=== PATIENT | male | born 1995 | race Hispanic/Latino ===

== ENCOUNTER 2017-08-26 03:45 | Emergency (ER) | payer SELFPAY ==
[2017-08-26 04:25] VITALS: BP 128/72; PULSE 78; RESP 18; TEMP 97.4; O2SAT 98
--- NOTE | 2017-08-26 04:27 | ED PDOC ---
HPI: Psych/Substance Abuse Time Seen by Provider: 08/26/17 03:55 Chief Complaint (Nursing): Alcohol Ingestion Chief Complaint (Provider): Alcohol Ingestion ED Caveat: Intoxicated History Per: Patient, Other ([place] [employer]) History/Exam Limitations: no limitations Onset/Duration Of Symptoms: Mins (prior to arrival) Current Symptoms Are (Timing): Still Present Additional Complaint(s): 22 year old male who presents to the emergency department via [place] police department for an evaluation of intoxication prior to arrival. Denied any drug use or bodily injury. PMD: none provided Past Medical History Reviewed: Historical Data, Nursing Documentation, Vital Signs Vital Signs: Last Vital Signs Temp 97.4 F L 08/26/17 04:23 Pulse 78 08/26/17 04:23 Resp 18 08/26/17 04:23 BP 128/72 08/26/17 04:23 Pulse Ox 98 08/26/17 04:23 - Medical History PMH: No Chronic Diseases - Surgical History Surgical History: No Surg Hx - Family History Family History: States: Unknown Family Hx - Social History Alcohol: Occasional Drugs: Denies - Allergies Allergies/Adverse Reactions: Allergies Allergy/AdvReac Type Severity Reaction Status Date / Time No Known Allergies Allergy Verified 08/26/17 04:23 Review of Systems ROS Statement: Except As Marked, All Systems Reviewed And Found Negative Musculoskeletal: Negative for: Other (injuries) Physical Exam - Reviewed Nursing Documentation Reviewed: Yes Vital Signs Reviewed: Yes - Physical Exam Appears: Positive for: Well, Non-toxic, No Acute Distress Head Exam: Positive for: ATRAUMATIC, NORMAL INSPECTION, NORMOCEPHALIC Cardiovascular/Chest: Positive for: Regular Rate, Rhythm, Chest Non Tender Respiratory: Positive for: Normal Breath Sounds. Negative for: Decreased Breath Sounds, Respiratory Distress Gastrointestinal/Abdominal: Positive for: Normal Exam, Soft. Negative for: Tenderness Extremity: Positive for: Normal ROM (upper/lower). Negative for: Pedal Edema, Deformity Neurologic/Psych: Positive for: Alert (x3), Oriented, Mood/Affect (mildly intoxicated), Gait (steady) - ECG O2 Sat by Pulse Oximetry: 98 (RA) Pulse Ox Interpretation: Normal Medical Decision Making Medical Decision Making: Initial Impression: ETOH intoxication Time: 414 --Upon provider reevaluation, patient is medically stable, states he wants to go home and requires no further treatment in the ED at this time. Patient will be discharged home. Counseling was provided and all questions were answered regarding diagnosis. There is agreement to discharge plan. Return if symptoms persist or worsen. Clinical Impression: ETOH intoxication Scribe Attestation: Documented by Tonya Reyez, acting as a scribe for Devon José MD. Provider Scribe Attestation: All medical record entries made by the Scribe were at my direction and personally dictated by me. I have reviewed the chart and agree that the record accurately reflects my personal performance of the history, physical exam, medical decision making, and the department course for this patient. I have also personally directed, reviewed, and agree with the discharge instructions and disposition. Disposition - Clinical Impression Clinical Impression: Alcohol abuse - Disposition Referrals: Alcoholics Anonymous [Outside] Disposition Time: 04:15 Condition: STABLE Instructions: At-Risk Alcohol Use (ED) Forms: [employer] ([place]ian)
== END 2017-08-26 04:45 | disposition home or self-care (01) ==
LOC: H.ER 03:45
DX: F10.129 Alcohol abuse with intoxication, unspecified (principal)